=== PATIENT | male | born 1995 | race African-American/Black ===

== ENCOUNTER 2020-05-03 01:06 | Inpatient (IN) | payer OTHER ==
[~2020-05-03] VITALS: Ht 180.3 cm; Wt 83.7 kg
--- NOTE | 2020-05-03 01:38 | NUR ---
CC OF "NOT FEELING RIGHT IN MY RIGHT LEG AND RIGHT ARM". PT STATES AROUND 11:30 PM HIS LEG STARTED LOOSING SENSATION WHILE DOING HOMEWORK. PT ATTEMPTED TO WALK IT OFF AND IT DID NOT GO AWAY. PT THEN SHOWERED AND NOTICED HIS RIGHT ARM WAS HAVING A HARD TIME GRABBING AND HOLDING ONTO THINGS. PT DENIES LOC, [place], BLURRY VISION, CHEST & ABD PAIN, AND TRAUMA. ASSESSMENT SHOWS RIGHT ARM STRENGTH LESS THEN LEFT ARM AND LEFT LEG STRENGTH MUCH LESS THEN RIGHT. +CMS. BROTHER AT BEDSIDE. PT A&O X4, SPEAKING CLEARLY.
--- NOTE | 2020-05-03 02:04 | NUR ---
PT STATES SENSATION HAS STARTED COMING BACK TO LEG AND ARM. UPDATED.
[2020-05-03 02:12] LABS: BASOPHILS % (AUTO) 1 % (0-1); EOSINOPHILS % (AUTO) 2 % (1-7); LYMPHOCYTES % (AUTO) 30 % (22-44); MEAN CORPUSCULAR HEMOGLOBIN 22.7 pg (27.5-34.5); MEAN CORPUSCULAR HGB CONC 32.4 g/dL (33.2-36.2); MEAN PLATELET VOLUME 8.6 fL (7.4-10.4); MONOCYTES % (AUTO) 8 % (2-9); NEUTROPHILS % (AUTO) 60 % (42-75); PLATELET COUNT 238 x10^3/uL (130-400); RED BLOOD COUNT 5.74 x10^6/uL (4.38-5.82); RED CELL DISTRIBUTION WIDTH 15.3 % (9.4-14.8)
[2020-05-03 02:15] LABS: MD NO
[2020-05-03 02:21] LABS: ALANINE AMINOTRANSFERASE 46 U/L (12-78); ALBUMIN 4.1 g/dL (3.4-5.0); ANION GAP 9 mmol/L (5-15); C-REACTIVE PROTEIN, QUANT 0.69 mg/dL (0.02-0.49); CALCIUM 9.1 mg/dL (8.5-10.1); CHLORIDE 107 mmol/L (98-107); CREATININE 1.45 mg/dL (0.7-1.3)
[2020-05-03 02:21] LABS: HCT (SEDRATE) 40.1 % (39.2-51.8)
[2020-05-03 02:26] LABS: ALKALINE PHOSPHATASE 92 U/L (45-117); BILIRUBIN,TOTAL 0.3 mg/dL (0.2-1.0); TOTAL PROTEIN 8.6 g/dL (6.4-8.2); TROPONIN I < 0.015 ng/mL (0.000-0.045)
--- NOTE | 2020-05-03 02:30 | NUR ---
PT TO MRI
--- NOTE | 2020-05-03 03:03 | NUR ---
Report given to Johanna REICH
--- NOTE | 2020-05-03 03:45 | NUR ---
PATIENT UPDATED ON PLAN OF CARE. NO NOTED ADDITIONAL NEEDS AT THIS TIME. WILL CONTINUE TO MONITOR.
[2020-05-03 05:19] VITALS: BP 148/90
[2020-05-03] MEDS ORDERED: ACETAMINOPHEN 325 MG TABLET PO PRN (05:30)
[2020-05-03] MEDS ORDERED: LABETALOL 5MG/ML, 20ML IVPush PRN (05:30)
[2020-05-03] MEDS ORDERED: POTASSIUM CHLORIDE 20 MEQ TAB.ER.PRT PO ONE (05:30)
[2020-05-03] MEDS ORDERED: ONDANSETRON 2MG/ML, 2ML IVPush PRN (05:30)
[2020-05-03] MEDS ORDERED: LACTATED RINGERS 1,000 ML IVBOLUS ONE (06:00)
[2020-05-03 07:12] VITALS: BP 157/87
[2020-05-03] MEDS: LACTATED RINGERS 1,000 ML IV SCH ×2 (08:17→22:13)
[2020-05-03 09:22] LABS: AMPHETAMINE SCREEN, URINE Negative (Negative); BARBITURATE SCREEN, URINE Negative (Negative); BENZODIAZEPINE SCREEN, URINE Negative (Negative); CANNABINOID SCREEN, URINE Negative (Negative); COCAINE SCREEN, URINE Negative (Negative); METHADONE SCREEN, URINE Negative (Negative); OPIATE SCREEN, URINE Negative (Negative)
[2020-05-03] MEDS ORDERED: GADOTERATE 10 MMOL/20ML SYR ONE (11:00)
[2020-05-03 14:25] VITALS: BP 121/81
[2020-05-03 15:26] LABS: GLUCOSE, CSF 61 mg/dL (40-80); TOTAL PROTEIN,CSF 37 mg/dL (15-45)
[2020-05-03 20:04] VITALS: BP 104/68
[2020-05-04 02:00] VITALS: BP 140/90
[2020-05-04] MEDS: LACTATED RINGERS 1,000 ML IV SCH ×2 (05:30→17:07)
[2020-05-04 06:13] LABS: BASOPHILS % (AUTO) 0 % (0-1); EOSINOPHILS % (AUTO) 0 % (1-7); LYMPHOCYTES % (AUTO) 11 % (22-44); MEAN CORPUSCULAR HEMOGLOBIN 22.8 pg (27.5-34.5); MEAN CORPUSCULAR HGB CONC 32.3 g/dL (33.2-36.2); MEAN PLATELET VOLUME 8.6 fL (7.4-10.4); MONOCYTES % (AUTO) 1 % (2-9); NEUTROPHILS % (AUTO) 88 % (42-75); PLATELET COUNT 240 x10^3/uL (130-400); RED BLOOD COUNT 5.72 x10^6/uL (4.38-5.82); RED CELL DISTRIBUTION WIDTH 15.2 % (9.4-14.8)
[2020-05-04 06:25] LABS: ANION GAP 9 mmol/L (5-15); CALCIUM 10.1 mg/dL (8.5-10.1); CHLORIDE 107 mmol/L (98-107)
[2020-05-04 06:28] LABS: CREATININE 1.05 mg/dL (0.7-1.3)
[2020-05-04 06:29] LABS: CHOL/HDL RATIO 4.9; CHOLESTEROL, TOTAL 283 mg/dL (140-239); HDL CHOL % 20 % (26-37); HDL CHOLESTEROL (DIRECT) 58 mg/dL (40-60); LDL CHOLESTEROL,CALCULATED 216 mg/dL (54-169); LDL/HDL RATIO 3.7 (0.5-3.0); TRIGLYCERIDES 45 mg/dL (50-200); VLDL CHOLESTEROL 9 mg/dL (0-25)
[2020-05-04 07:15] VITALS: BP 138/83
[2020-05-04 07:26] LABS: MD MORPH REVIEW ONLY
[2020-05-04 07:27] LABS: ANISOCYTOSIS 1+; MICROCYTOSIS 1+
[2020-05-04 07:28] LABS: <PLATELET ESTIMATE> ADEQUATE; <PLT MORPHOLOGY> NORMAL PLT MORPH
[2020-05-04 12:02] VITALS: BP 139/66
[2020-05-04 20:12] VITALS: BP 123/81
[2020-05-05 01:38] VITALS: BP 126/74
[2020-05-05] MEDS: LACTATED RINGERS 1,000 ML IV SCH ×2 (01:52→09:00)
[2020-05-05 07:02] VITALS: BP 136/82
[2020-05-05] MEDS ORDERED: FERR-51 PO (08:20)
[2020-05-05] MEDS ORDERED: ATOR10TA9 PO (08:20)
[2020-05-05] MEDS ORDERED: ATORVASTATIN 10 MG TABLET PO SCH (21:00)
[2020-05-06] MEDS ORDERED: FERROUS SULFATE 325 MG TABLET PO SCH (08:00)
== END 2020-05-05 12:00 | disposition home or self-care (01) | DRG 59 ==
LOC: ED 02:49 → EDIP 03:24 → 4WST 04:45 → DCLOUNGE 05-05 11:45
PROVIDERS: ADMIT Family Medicine; ATTEND Family Medicine
PROC: 009U3ZX Drainage of Spinal Canal, Percutaneous Approach, Diagnostic (ICD-10-PCS; principal; 2020-05-03)
PROC: B01B1ZZ Fluoroscopy of Spinal Cord using Low Osmolar Contrast (ICD-10-PCS; 2020-05-03)
DX: G35 Multiple sclerosis (principal); N17.9 Acute kidney failure, unspecified; G93.9 Disorder of brain, unspecified; D50.9 Iron deficiency anemia, unspecified; E78.5 Hyperlipidemia, unspecified; E87.6 Hypokalemia; R73.9 Hyperglycemia, unspecified
CPT/HCPCS: 36415; 62328; 70551; 70552; 72156; 72157; 72158; 80048; 80053; 80061; 80307; 82040; 82042; 82164; 82607; 82728; 82784; 82945; 83540; 83550; 83735; 83873; 84100; 84157; 84443; 84466; 84484; 85025; 85651; 86140; 86645; 86695; 86696; 86762; 86777; 86778; 89051; 93005; 99285; G0378; J2930; A9575; J7120